=== PATIENT | male | born 1935 | race Caucasian/White ===

== ENCOUNTER 2022-05-06 05:57 | Outpatient (REF) | payer MEDICARE, SELFPAY ==
[2022-05-08 19:49] LABS: TS Negative Control Passed; TS Panel A 0; TS Panel B 2; TS Positive Control Passed; TSpotTB Negative (Negative)
== END 2022-05-06 05:58 | disposition home or self-care (01) ==
LOC: HO.HSH2E 05:57
PROVIDERS: Visit Provider Internal Medicine Medical Oncology
DX: Z11.1 Encounter for screening for respiratory tuberculosis (principal); I10 Essential (primary) hypertension
CPT/HCPCS: 36415; 86481

== ENCOUNTER 2022-08-13 05:32 | Outpatient (REF) | payer MEDICARE, SELFPAY ==
[2022-08-13 05:37] LABS: MANUAL DIFF FLAG NO
[2022-08-13 05:41] LABS: Basophils Percent Auto 0.8 % (0-2); Eosinophils Absolute Auto 0.2 X10*3/uL (0.0-0.4); Eosinophils Percent Auto 4.6 % (0-4); Hematocrit 36.2 % (42.0-52.0); Hemoglobin 11.8 g/dl (14.0-18.0); Imm Gran Abs Auto 0.02 X10*3/uL (0.00-0.03); Imm Gran Pct Auto 0.4 % (0.0-0.4); Lymphocytes Absolute Auto 1.3 X10*3/uL (1.2-4.9); Lymphocytes Percent Auto 28.2 % (20-40); Mean Corpuscular HGB Conc 32.6 g/dl (31.0-36.0); Mean Corpuscular Hemoglobin 28.9 pg (27.0-33.0); Mean Corpuscular Volume 88.5 fL (80.0-98.0); Mean Platelet Volume 8.9 fL (9.4-12.4); Monocytes Absolute Auto 0.5 X10*3/uL (0.1-1.2); Monocytes Percent Auto 11.1 % (2-11); Neutrophils Absolute Auto 2.6 x10*3/uL (2.0-8.3); Neutrophils Percent Auto 54.9 % (45-73); Platelet Count 205 X10*3/uL (160-400); Red Blood Count 4.09 X10*6/uL (4.60-5.80); Red Cell Distribution Width 13.1 % (11.0-16.0); White Blood Count 4.8 X10*3/uL (4.8-10.8)
[2022-08-13 06:03] LABS: Alanine Aminotransferase 7 U/L (0-40); Albumin Level 3.4 g/dL (3.5-5.0); Alkaline Phosphatase 42 U/L (39-117); Anion Gap 8 (12-20); Aspartate Amino Transferase 9 U/L (5-37); Bilirubin Total 0.4 mg/dL (0.0-1.0); Blood Urea Nitrogen 21 mg/dL (9-16); Calcium 9.2 mg/dL (8.4-10.2); Carbon Dioxide 31 mmol/L (22-29); Chloride 106 mmol/L (96-108); Cholesterol 151 mg/dL; Estimated Glomerular Filt Rate > 60; Glucose Fasting 96 mg/dL (60-99); HDL Cholesterol 46 mg/dL; LDL Cholesterol Calculated 95 mg/dl; Potassium 4.3 mmol/L (3.3-5.1); Sodium 141 mmol/L (135-145); Total Protein 5.7 g/dL (6.5-8.0); Triglycerides 51 mg/dL
[2022-08-13 06:30] LABS: Folate 7.5 ng/mL (> or = 4.0); Thyroid Stimulating Hormone 2.22 uIU/mL (0.32-4.0); Vitamin B12 824 pg/mL (200-900)
== END 2022-08-13 05:33 | disposition home or self-care (01) ==
LOC: HO.HSH2E 05:32
PROVIDERS: Visit Provider Internal Medicine Medical Oncology
DX: E78.5 Hyperlipidemia, unspecified (principal); D64.9 Anemia, unspecified
CPT/HCPCS: 36415; 80053; 80061; 82607; 82746; 83735; 84443; 85025

== ENCOUNTER 2023-05-30 07:35 | Outpatient (REF) | payer MEDICARE, SELFPAY ==
[2023-05-30 07:39] LABS: MANUAL DIFF FLAG NO
[2023-05-30 07:43] LABS: Basophils Percent Auto 0.6 % (0-2); Eosinophils Absolute Auto 0.2 X10*3/uL (0.0-0.4); Eosinophils Percent Auto 2.5 % (0-4); Hematocrit 33.2 % (42.0-52.0); Hemoglobin 11.2 g/dl (14.0-18.0); Imm Gran Abs Auto 0.02 X10*3/uL (0.00-0.03); Imm Gran Pct Auto 0.3 % (0.0-0.4); Lymphocytes Absolute Auto 1.7 X10*3/uL (1.2-4.9); Lymphocytes Percent Auto 25.1 % (20-40); Mean Corpuscular HGB Conc 33.7 g/dl (31.0-36.0); Mean Corpuscular Hemoglobin 29.3 pg (27.0-33.0); Mean Corpuscular Volume 86.9 fL (80.0-98.0); Mean Platelet Volume 8.9 fL (9.4-12.4); Monocytes Absolute Auto 0.8 X10*3/uL (0.1-1.2); Monocytes Percent Auto 11.8 % (2-11); Neutrophils Absolute Auto 4.1 x10*3/uL (2.0-8.3); Neutrophils Percent Auto 59.7 % (45-73); Platelet Count 202 X10*3/uL (160-400); Red Blood Count 3.82 X10*6/uL (4.60-5.80); Red Cell Distribution Width 13.9 % (11.0-16.0); White Blood Count 6.9 X10*3/uL (4.8-10.8)
[2023-05-30 08:00] LABS: Alanine Aminotransferase 10 U/L (0-40); Albumin Level 3.3 g/dL (3.5-5.0); Alkaline Phosphatase 51 U/L (39-117); Anion Gap 11 (12-20); Aspartate Amino Transferase 12 U/L (5-37); Bilirubin Total 0.4 mg/dL (0.0-1.0); Blood Urea Nitrogen 19 mg/dL (9-16); Calcium 8.7 mg/dL (8.4-10.2); Carbon Dioxide 26 mmol/L (22-29); Chloride 103 mmol/L (96-108); Estimated Glomerular Filt Rate > 60; Glucose Random 98 mg/dL (60-115); Sodium 136 mmol/L (135-145); Total Protein 5.8 g/dL (6.5-8.0)
== END 2023-05-30 07:36 | disposition home or self-care (01) ==
LOC: HO.HSH2E 07:35
PROVIDERS: Visit Provider Internal Medicine Medical Oncology
DX: D64.9 Anemia, unspecified (principal); R50.9 Fever, unspecified
CPT/HCPCS: 36415; 80053; 85025

== ENCOUNTER 2023-07-16 11:40 | Outpatient (REF) | payer MEDICARE, SELFPAY ==
[2023-07-16 12:23] LABS: Influenza A PCR NEGATIVE (Negative); Influenza B PCR NEGATIVE (Negative); Resp Syncy Virus RNA Qual PCR NEGATIVE (Negative); SARS COV2 PCR INHOUSE NEGATIVE (Negative)
== END 2023-07-16 11:41 | disposition home or self-care (01) ==
LOC: HO.HSH2E 11:40
PROVIDERS: Visit Provider Internal Medicine Medical Oncology
DX: R50.9 Fever, unspecified (principal)
CPT/HCPCS: 0241U

== ENCOUNTER 2023-11-15 06:26 | Outpatient (REF) | payer MEDICARE, SELFPAY ==
[2023-11-15 06:28] LABS: MANUAL DIFF FLAG NO
[2023-11-15 07:53] LABS: Basophils Percent Auto 0.7 % (0-2); Eosinophils Absolute Auto 0.4 X10*3/uL (0.0-0.4); Eosinophils Percent Auto 7.4 % (0-4); Hematocrit 36.9 % (42.0-52.0); Hemoglobin 12.2 g/dl (14.0-18.0); Imm Gran Abs Auto 0.02 X10*3/uL (0.00-0.03); Imm Gran Pct Auto 0.4 % (0.0-0.4); Lymphocytes Absolute Auto 1.5 X10*3/uL (1.2-4.9); Lymphocytes Percent Auto 26.5 % (20-40); Mean Corpuscular HGB Conc 33.1 g/dl (31.0-36.0); Mean Corpuscular Hemoglobin 29.6 pg (27.0-33.0); Mean Corpuscular Volume 89.6 fL (80.0-98.0); Mean Platelet Volume 9.4 fL (9.4-12.4); Monocytes Absolute Auto 0.7 X10*3/uL (0.1-1.2); Monocytes Percent Auto 12.3 % (2-11); Neutrophils Absolute Auto 2.9 x10*3/uL (2.0-8.3); Neutrophils Percent Auto 52.7 % (45-73); Platelet Count 175 X10*3/uL (160-400); Red Blood Count 4.12 X10*6/uL (4.60-5.80); Red Cell Distribution Width 13.8 % (11.0-16.0); White Blood Count 5.6 X10*3/uL (4.8-10.8)
[2023-11-15 08:08] LABS: Alanine Aminotransferase 9 U/L (0-40); Albumin Level 3.6 g/dL (3.5-5.0); Alkaline Phosphatase 51 U/L (39-117); Anion Gap 8 (12-20); Aspartate Amino Transferase 13 U/L (5-37); Bilirubin Total 0.4 mg/dL (0.0-1.0); Blood Urea Nitrogen 18 mg/dL (9-16); Carbon Dioxide 31 mmol/L (22-29); Chloride 102 mmol/L (96-108); Estimated Glomerular Filt Rate > 60; Glucose Random 85 mg/dL (60-115); Potassium 4.3 mmol/L (3.3-5.1); Sodium 137 mmol/L (135-145); Total Protein 6.1 g/dL (6.5-8.0)
== END 2023-11-15 06:27 | disposition home or self-care (01) ==
LOC: HO.HSH2E 06:26
PROVIDERS: Visit Provider Nurse Practitioner
DX: D64.9 Anemia, unspecified (principal); N18.9 Chronic kidney disease, unspecified
CPT/HCPCS: 36415; 80053; 85025

== ENCOUNTER 2024-01-11 06:20 | Outpatient (REF) | payer MEDICARE, SELFPAY ==
[2024-01-11 07:20] LABS: Thyroid Stimulating Hormone 2.07 uIU/mL (0.32-4.0)
== END 2024-01-11 06:21 | disposition home or self-care (01) ==
LOC: HO.HSH2E 06:20
PROVIDERS: Visit Provider Internal Medicine Endocrinology, Diabetes & Metabolism
DX: E03.9 Hypothyroidism, unspecified (principal)
CPT/HCPCS: 36415; 84443

== ENCOUNTER 2024-11-12 07:20 | Outpatient (REF) | payer OTHER, SELFPAY ==
[2024-11-12 07:23] LABS: MANUAL DIFF FLAG NO
--- OUTSIDE RECORDS SUMMARY | 2024-11-12 07:23 | XMS_ITS | Patient Health Record ---
Author Organization [facility] [place] Address [address] [place] [address] Care Team Providers Care Podiatric Assistant Name Role Phone Griselda Crump MD Primary Care Provider Paula Armando Lundy Unavailable [phone] Allergies No Known Allergies Reason For Referral No Information Medications Medication SIG (Take, Route, Frequency, Duration) Notes Start Date End Date Status Escitalopram Oxalate 10 MG Orally Once a day Active calcium as directed Active Atorvastatin Calcium 40 MG 1 tablet Oral ly Once a day; Duration: 30 day(s) Not-Taking Donepezil HCl 10 MG 1 tablet at bedtime Orally Once a day Active Losartan Potassium 100 MG 1 tablet Orall y Once a day; Duration: 30 day(s) Not-Taking Flunisolide 0.025 % 2 drops in each nostril Nasally Twice a day; Duration: 30 day(s) Not-Taking Gabapentin 300 MG 1 capsule Orally 1-2 times a day; Duration: 30 day(s) Active Homocysteine Formula 800-50-100 MCG-MG-MCG as directed Orally Active Fish Oil once daily Active Naproxen 1-2 once daily Not-T aking Fluticasone Propionate Active Prazosin HCl 1mg Act nahid risperiDONE 1 MG 1 tablet Orally Once a day Active Levothyroxine Sodium 75 MCG once daily Orally once daily Active Meclizine HCl 25 MG 1 tablet as needed Orally Once a day; Duration: 30 day(s) Active Tadalafil 20 MG 1 tablet Orally Once a day Active vitamin as directed Active Vitamin D 2000 UNIT as directed Orally once daily Active Sildenafil Citrate 25 MG 1 tablet as nee ded Orally Once a day; Duration: 30 day(s) Not-Taking Melatonin 5 mg 1 tablet at bedtime as needed with food Orally Once a day; Duration: 30 day(s) Not-Taking Lutein twice daily Not-Taki ng Bilberry as directed Orally twice daily Not-Taking Aspirin 81 mg once daily Activ e Bystolic 5 MG 1 tablet Orally Once a day; Duration: 30 day(s) Not-Taking Cephalexin 500 MG 1 capsule Orally Fou r times a day; Duration: 5 day(s) Active Prazosin HCl 2 MG 1 capsule at bedtime Orally Once a day; Duration: 30 day(s) Not-Taking Januvia 100 MG 1 tablet Orally Once a day; Duration: 30 day(s) Not-Taking Allergy Active Furosemide 20 MG as directed Orally Not-Taking Immunizations Vaccine Route Administration Date Status Comme nts Influenza Unknown 12/31/2020 Administered COVID-19 Moderna Vaccine Unknown 01/30/2021 Administered 1st 05/09/2020 2nd 06/05/2020 Social History Tobacco Use: Social History Observation Description Date Details (start date - stop date) Never Smoker NA - NA Tobacco Use/Smoking Question Answer Notes Are you a: nonsmoker Alcohol Screen Question Answer Notes Did you have a drink containing alcohol in the p ast year? No Points 0 Interpretation Negative Tobacco use other than smoking: Question Answer Notes Are you an other tobacco user? No Problems Problem Type SNOMED Code ICD Code Onset Dates Problem Status W/U Status Risk Notes Problem Tinea unguium (119950544) Tinea unguium (B35.1) Active confirmed Problem Ingrowing nail (769049390) Ingrowing nail (L60.0) Active confirmed Plan Of Treatment Pending Test Test Name Order Date [id number] NAIL, 6 OR MORE 01/06/2011 [id number] NAIL, 6 OR MORE 04/07/2011 [id number] NAIL, 6 OR MORE 07/07/2011 [id number] NAIL, 6 OR MORE 09/29/2011 41512-YMVABVK NAIL, 6 OR MORE 12/29/2011 16255-HZPIDFO NAIL, 6 OR MORE 04/19/2012 [id number]-STKIWEV NAIL, 6 OR MORE 07/05/2012 71890-VQUOEXR NAIL, 6 OR MORE 09/20/2012 75684-PJWAOZF NAIL, 6 OR MORE 12/20/2012 71483-ASXBGGJ NAIL, 6 OR MORE 04/18/2013 29441-ZJSJGXH NAIL, 6 OR MORE 07/18/2013 10264-ZINPXGY NAIL, 6 OR MORE 10/17/2013 60834-FWCWWBH NAIL, 6 OR MORE 01/23/2014 96471-BCPKOSN NAIL, 6 OR MORE 04/23/2014 19206-EGCJMNY NAIL, 6 OR MORE 08/06/2014 96317-EYVXQSL NAIL, 6 OR MORE 11/08/2014 15627-KNWMSDN NAIL, 6 OR MORE 02/14/2015 35377-CIYHQHR NAIL, 6 OR MORE 05/30/2015 68596-WQIDZAL NAIL, 6 OR MORE 08/29/2015 68962-FADRIGN NAIL, 6 OR MORE 12/16/2015 35452-IBFJANH NAIL, 6 OR MORE 03/23/2016 86747-XPUCONH NAIL, 6 OR MORE 06/22/2016 66634-JUUFQTM NAIL, 6 OR MORE 09/21/2016 53614-REKXVKQ NAIL, 6 OR MORE 12/31/2016 70557-EIGRIKF NAIL, 6 OR MORE 04/05/2017 57041-EQXUCBR NAIL, 6 OR MORE 07/05/2017 42735-HLVAALL NAIL, 6 OR MORE 10/18/2017 82225-FKMCFJJ NAIL, 6 OR MORE 01/17/2018 63276-WXGRUXD NAIL, 6 OR MORE 05/02/2018 44907-FTABWMC NAIL, 6 OR MORE 08/01/2018 73786-IBADNIP NAIL, 6 OR MORE 10/31/2018 29278-TWVFSRQ NAIL, 6 OR MORE 03/13/2019 88837-ENBWEIX NAIL, 6 OR MORE 06/22/2019 58898-QWTMNBU NAIL, 6 OR MORE 09/28/2019 37617-OWGSHTZ NAIL, 6 OR MORE 01/04/2020 85900-DINKYDO NAIL, 6 OR MORE 04/11/2020 08843-PQLSNUW NAIL, 6 OR MORE 07/11/2020 94307-KNNTBQF NAIL, 6 OR MORE 10/14/2020 21480-RRAIDLS NAIL, 6 OR MORE 02/06/2021 82113-Yljf Destruction, 1-14 04/07/2011 39237-Yjtu Destruction, 1-14 07/07/2011 79969-Pynw Destruction, 1-14 01/06/2011 50905-Pfetfdce Plate 01/06/2011 19599-Jxivvmcn Plate 07/07/2011 13066-Suoaxnly Plate 04/07/2011 48312-Jkfllvln Plate 09/29/2011 54644-Tuzukrgn Plate 04/19/2012 08160-Gqmqosgv Plate 12/29/2011 73534-Tnaksntw Plate 04/23/2014 68606-Towdojyf Plate 01/23/2014 06508-Laufghgp Plate 10/17/2013 92682-Bpqhffrj Plate 07/18/2013 07569-Uofrzaqf Plate 04/18/2013 57058-Aunfxidd Plate 12/20/2012 70853-Zxgzswsf Plate 09/20/2012 42172-Tsphawtt Plate 07/05/2012 27995-Jidrrxyj Plate 03/13/2019 72840-Edwjvypd Plate 10/31/2018 30068-Cqjtisrl Plate 08/01/2018 05970-Rjntbkvo Plate 05/02/2018 26440-Rwqsqwge Plate 01/17/2018 73529-Vgohjfem Plate 10/18/2017 47254-Vxoiabwp Plate 07/05/2017 71020-Iouqwydi Plate 04/05/2017 80218-Ibqpmraf Plate 12/31/2016 17475-Txtebcyr Plate 06/22/2016 32829-Siuzcbop Plate 09/21/2016 17869-Lvcgugce Plate 03/23/2016 44295-Ufpwzxlh Plate 08/29/2015 46616-Wmwjvmbh Plate 05/30/2015 70047-Gffkcbjf Plate 02/14/2015 85118-Efogqrci Plate 11/08/2014 57725-Srxerypu Plate 08/06/2014 62473-Inriyhbj Plate 02/06/2021 81090-Nlxqafox Plate 10/14/2020 17509-Arnqrnyd Plate 07/11/2020 31973-Vpcbtalr Plate 04/11/2020 57286-Lmlrktar Plate 01/04/2020 35496-Dksivkne Plate 09/28/2019 16390-Ioikikua Plate 06/22/2019 95047-Tgipzdac Plate Each Additional 87729-Tkyy. Subungual Hematoma 2 52495-Mxhb. Subungual Hematoma 4 Insurance Providers Payer Name Payer Address Payer Phone Subscriber Number Group Number Insured Name Patient Relationship to Insured Coverage Start Date Coverage End Date [employer] 65 Medicare Preferred [address] [place] [address] [id number] Bulmaro Hutton Self - patient is the insured Medical (General) History Medical History History ICD Code thyroid disorder chronic sinusitis joint implants/screws blindness bilateral eyes sleep apnea seasonal allergies Balwinder Pam Disease Surgical History Surgery Date(Month/Year) back surgery-neck 1999 Drained Cyct on back 10/10/20 Hospitalization History Reason Date(Month/Year) Cataract Surgery- [facility] 01/14 pneumonia 03/2016 vertigo 10/2016 [facility]- vertigo 10/2017 [facility]- Large infection in the large inte sarah 11/24/18 [facility] visit-flashing in eyes- migrain e in eye 01/2020
--- OUTSIDE RECORDS SUMMARY | 2024-11-12 07:23 | XMS_ITS | Clinical Summary ---
Author Organization [facility] Address [address] [facility] [address] [place] [address] Care Team Providers Care Creative Lead Name Role Phone Unavailable Primary Care Provider Unavailabl e Allergies Active Allergy Reactions Criticality Noted Date Comments Cheese 02/15/2024 Bacid 12/29/2022 Medications baclofen (Lioresal) 10 MG tablet 11/18/2022 Active cholecalciferol (Vitamin D-3) 25 MCG (1000 UT) tablet Take 1,000 Units by mouth in the morning. Active donepezil (Aricept) 10 MG tablet 10/29/2022 Active escitalopram (Lexapro) 10 MG tablet 10/29/2022 Active gabapentin (Neurontin) 300 MG capsule 11/13/2022 Active haloperidol (Haldol) 1 MG tablet 11/08/2022 Active haloperidol (Haldol) 5 MG tablet 11/08/2022 Active Synthroid 75 MCG tablet 11/11/2022 Active LORazepam (Ativan) 0.5 MG tablet 10/23/2022 Active prazosin (Minipress) 1 MG capsule 10/29/2022 Active traZODone (Desyrel) 50 MG tablet 10/18/2022 Active bisacodyl (Fleet Bisacodyl) 10 MG/30ML enema Insert 10 mg into the rectum 1 (one) time. Active loperamide (Imodium) 2 MG capsule Take 2 mg by mouth if needed in the morning, at noon, in the evening, and at bedtime for diarrhea. Active cyanocobalamin (Vitamin B-12) 1000 MCG tablet 1 tablet in the morning. Active tiZANidine (Zanaflex) 4 MG capsule Take 4 mg by mouth 3 times daily. Active magnesium hydroxide (Milk of Magnesia) 400 MG/5ML suspension Take by mouth at bedtime. Active acetaminophen (Tylenol) 325 MG tablet Take 325 mg by mouth if needed in the morning, at noon, and at bedtime for mild pain. Active thiamine (Vitamin B-1) 100 MG tablet Take 100 mg by mouth Once per day. Active aspirin 81 MG EC tablet Take 81 mg by mouth Once per day. 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 No intervention nor surgery required. Encounters Date Type Department Care Team Description 09/26/2024 9:30 AM EDT Office Visit [facility] [address] [place] [address] Malika Cabral Dental calculus (Primary Dx); Dental plaque from Last 3 Months Social History Tobacco Use Types Packs/Day Years Used Date Smoking Tobacco: Unknown Tobacco Cessation:Counseling Given: Not Answered Alcohol Use Standard Drinks/Week Comments Defer 0 (1 standard drink = 0.6 oz pur e alcohol) Sex and Gender Information Value Date Recorded Sex Assigned at Male 02/01/2022 10:23 AM EDT Legal Sex Male 10:23 AM EDT Gender Identity Male 05/07/2022 2:11 PM EST Sexual Orientation Straight 05/07/2022 2: 11 PM EST Last Filed Vital Signs Vital Sign Reading Time Taken Comments Blood Pressure 118/78 06/02/2022 9:03 AM EST Pulse 67 06/02/2022 9:03 AM EST Temperature - - Respiratory Rate - - Oxygen Saturation - - Inhaled Oxygen Concentration - - Weight - - Height - - Body Mass Index - - Plan of Treatment Health Maintenance Due Date Last Done Comments Dental X-Ray: Full Mouth 1937 Depression Screening 1937 Lipid Panel 1937 SDOH Screening 1937 Alcohol/Substance Use Screening 1949 RSV Patients and Patients Aged 60 years or older (1 - 1-dose 75+ series) 2012 DTaP/Tdap/Td Vaccines (2 - Tdap) 09/14/2021 09/15/2011, 06/02/2005 Dental X-Ray: Bitewings 06/04/2023 06/02/2022, 06/02 COVID-19 Vaccine ( season) 2023 01/30/2021, 06/05/2020, 05/09/2020, Additional history exists Influenza Vaccine (#1) 2024 , 12/22/2019, 12/22/2019, Additional history exists Dental Oral Exam 01/11/2025 07/11/2024, , 01/12/2023, Additional history exists Dental Prophylaxis 03/29/2025 09/26/2024, 0 06/27/2024, 03/14/2024, Additional history exists Tobacco Screening 09/26/2025 09/26/2024 Zoster Vaccines Completed 08/17/2017, 06/02, 07/21/2011 Pneumococcal Vaccine: 50+ Years Completed 01/02/2021, 01/02/2015, 01/13/2006, Additional history exists HIB Vaccines Aged Out No longer eligi ble based on patient's age to complete this topic HPV Vaccines Aged Out No longer eligi ble based on patient's age to complete this topic Hepatitis A Vaccines Aged Out No long er eligible based on patient's age to complete this topic Hepatitis B Vaccines Aged Out No long er eligible based on patient's age to complete this topic IPV Vaccines Aged Out No longer eligi ble based on patient's age to complete this topic Meningococcal B Vaccine Aged Out No l onger eligible based on patient's age to complete this topic Meningococcal Vaccine Aged Out No [place] eligible based on patient's age to complete this topic RSV under 20 months Aged Out No longe r eligible based on patient's age to complete this topic Rotavirus Vaccines Aged Out No longer eligible based on patient's age to complete this topic Procedures Procedure Name Priority Date/Time Associated Diagnosis Comments PROPHYLAXIS - ADULT Routine 09/26/2024 9 :30 AM EDT Dental calculus Dental plaque PERIODIC ORAL EVALUATION - ESTABLISHED PATIENT Routine 07/11/2024 9:00 AM EDT BITEWING - SINGLE RADIOGRAPHIC IMAGE Routine 06/02/2022 9:00 AM EST from Last 3 Months or Most Recently Relevant to Health Maintenance
[2024-11-12 08:02] LABS: Hematocrit 34.2 % (42.0-52.0); Hemoglobin 10.8 g/dl (14.0-18.0); Imm Gran Abs Auto 0.02 X10*3/uL (0.00-0.03); Imm Gran Pct Auto 0.4 % (0.0-0.4); Lymphocytes Absolute Auto 1.4 X10*3/uL (1.2-4.9); Mean Corpuscular HGB Conc 31.6 g/dl (31.0-36.0); Mean Corpuscular Hemoglobin 28.9 pg (27.0-33.0); Mean Corpuscular Volume 91.4 fL (80.0-98.0); NRBC Abs Auto 0.000 X10*3/uL (0.0-0.012); NRBC Pct Auto 0.0 /100WBC (0.0-0.2); Platelet Count 164 X10*3/uL (160-400); Red Blood Count 3.74 X10*6/uL (4.60-5.80); White Blood Count 5.5 X10*3/uL (4.8-10.8)
[2024-11-12 08:17] LABS: Alanine Aminotransferase 10 U/L (0-40); Albumin Level 3.6 g/dL (3.5-5.0); Alkaline Phosphatase 46 U/L (39-117); Anion Gap 9 (12-20); Aspartate Amino Transferase 22 U/L (5-37); Blood Urea Nitrogen 26 mg/dL (9-16); Calcium 8.9 mg/dL (8.4-10.2); Carbon Dioxide 27 mmol/L (22-29); Chloride 110 mmol/L (96-108); Estimated Glomerular Filt Rate > 60; Potassium 4.2 mmol/L (3.3-5.1); Sodium 142 mmol/L (135-145); Total Protein 6.1 g/dL (6.5-8.0)
== END 2024-11-12 07:21 | disposition home or self-care (01) ==
LOC: HO.HSH2E 07:20
PROVIDERS: Visit Provider Internal Medicine Endocrinology, Diabetes & Metabolism
DX: F03.90 Unspecified dementia, unspecified severity, without behavioral disturbance, psychotic disturbance, mood disturbance, and anxiety (principal)
CPT/HCPCS: 36415; 80053; 85025